=== PATIENT | female | born 1950 | race Caucasian/White ===

== ENCOUNTER 2019-01-28 11:51 | Inpatient (IN) | payer MEDICAID, MEDICARE ==
[~2019-01-28] VITALS: Ht 160 cm; Wt 49.5 kg
[2019-01-30 13:37] VITALS: BP 161/84
== END 2019-01-30 19:00 | disposition home or self-care (01) | DRG 383 ==
LOC: ED 12:25 → EDIP 13:56 → SUATTDRO 14:06 → 3NE 14:59
PROVIDERS: ADMIT Internal Medicine; ATTEND Internal Medicine
PROC: 0DB98ZX Excision of Duodenum, Via Natural or Artificial Opening Endoscopic, Diagnostic (ICD-10-PCS; principal; 2019-01-29)
PROC: 0DB68ZX Excision of Stomach, Via Natural or Artificial Opening Endoscopic, Diagnostic (ICD-10-PCS; 2019-01-29)
DX: K26.9 Duodenal ulcer, unspecified as acute or chronic, without hemorrhage or perforation (principal); E43 Unspecified severe protein-calorie malnutrition; Z68.1 Body mass index [BMI] 19.9 or less, adult; K29.60 Other gastritis without bleeding; K58.0 Irritable bowel syndrome with diarrhea; D72.829 Elevated white blood cell count, unspecified; E11.9 Type 2 diabetes mellitus without complications; F17.210 Nicotine dependence, cigarettes, uncomplicated; I44.7 Left bundle-branch block, unspecified; M79.7 Fibromyalgia; Z87.11 Personal history of peptic ulcer disease; Z88.0 Allergy status to penicillin; Z88.2 Allergy status to sulfonamides; Z59.0 Homelessness; Z79.82 Long term (current) use of aspirin; K25.9 Gastric ulcer, unspecified as acute or chronic, without hemorrhage or perforation
CPT/HCPCS: 36415; 74177; 80053; 81003; 82010; 83036; 83690; 83735; 84100; 84443; 85025; 87040; 88305; 88342; 96361; 96374; 96375; 99152; 99153; 99285; G0378; J2250; J2405; J3010; Q9967; C9113; J2270; J3490; J7030